=== PATIENT | male | born 1995 | race Two or more races ===

== ENCOUNTER 2024-09-15 09:04 | Emergency (ER) | payer MEDICAID, OTHER ==
[~2024-09-15] VITALS: Ht 175.3 cm; Wt 91.0 kg
[2024-09-15 09:38] VITALS: BP 111/82; PULSE 64; RESP 16; TEMP 97.8; O2SAT 98
[2024-09-15] MEDS ORDERED: ERY05OO OP (10:24)
[2024-09-15] MEDS ORDERED: POLY1DRO14 OP (10:24)
--- NOTE | 2024-09-15 10:24 | ED.PDOC ---
Eye-HPI HPI Comments A 29 year old male with no past medical history presents to the emergency department with a chief complaint of RT eye pain onset 2 days. Patient states he has been experiencing RT eye discomfort, irritation, discharge, crusting for the past 2 days, states he noticed symptoms worsen this morning. He has tried washing his eye with no improvement of symptoms, noticed blurry vision from RT eye. No other symptoms or modifying factors present at this time. Denies hearing changes, nausea, vomiting Denies fever, chills Denies headache, dizziness Denies ear pain, sore throat, cough, congestion Chief Complaint: Eye Problem Time Seen by MD: 09:55 Primary Care Provider: NONE Reviewed Notes: Medications, Allergies Allergies: Coded Allergies: NO KNOWN ALLERGIES (Unverified , 09/15/24) Home Meds Active Scripts Polyethylene Glycol-Propylene (Lubricating Eye Drops 0.4-0.3 %) 1 Terrence Terrence, 1 TERRENCE OP UD for 30 Days, #1 TERRENCE 0 Refills Prov:NIC PETERSON [employer] 09/15/24 Erythromycin (Erythromycin) 5 Mg/Gm Oin, 1 APPLIC OP TID for 7 Days, #3.5 GRAMS 0 Refills Prov:NIC PETERSON [employer] 09/15/24 Information Source: Patient Mode of Arrival: Ambulatory Timing: Days Duration: Since onset Prehospital treatment: None Quality: Red, Discharge Eye Location: Right Lids: Red Slit lamp exam: Normal Anterior chamber: Normal Mouth: Normal ENT Ear Exam: Normal Nose: Normal Sinuses: Normal Oropharynx: Normal Onset: Spontaneous Throat Exposed to: None Associated signs and symptoms: Discharge Past Medical History PAST MEDICAL HISTORY: Denies Surgical History: Denies all surgeries Family History Family History: Reviewed,noncontributory to illness, No family hx of Cancer, No family hx of DM, No family hx of Heart andrews, No family hx of HTN, No family hx ofKidney andrews, No family hx of Liver andrews, No family hx of Lung andrews, No family hx of Stroke Social History Smoker: Non-Smoker Alcohol: Denies ETOH Use Drugs: Denies Drug Use Lives In: Home All Other Systems: Reviewed and Negative (as per HPI) Physical Exam General Appearance: No Apparent Distress, Normal HEENT: Normal ENT Inspection, Pharynx Normal, TMs Normal, Other (R EYE: Mild conjunctival injection. No FB. EOM intact. PERRLA. ) Neck: Full Range of Motion, Non-Tender, Normal, Normal Inspection Respiratory: Chest Non-Tender, Lungs Clear, No Accessory Muscle Use, No Respiratory Distress, Normal Breath Sounds Cardiovascular: No Edema, No JVD, No Murmur, No Gallop, Normal Peripheral Pulses, Regular Rate/Rhythm Breast Exam: Deferred Gastrointestinal: No Organomegaly, Non Tender, No Pulsatile Mass, Normal Bowel Sounds, Soft Genitalia: Deferred Pelvic: Deferred Rectal: Deferred Extremities: No calf tenderness, Normal capillary refill, Normal inspection, Normal range of motion, Non-tender, No pedal edema Musculoskeletal : Apperance: Normal Neurologic: Alert, motorcycle technician II-XII nml as Tested, No Motor Deficits, Normal Affect, Normal Mood, No Sensory Deficits Cerebellar Function: Normal Reflexes: Normal Skin: Dry, Normal Color, Warm Lymphatic: No Adenopathy Was a procedure done? Was a procedure done?: No EENT DIFF Eye: Bacterial, Viral, Foreign Body-Lid, Iritis/Uveitis, Other X-Ray, Labs, Meds, VS Vital Signs Date Time Temp Pulse Resp B/P (MAP) Pulse Ox O2 Delivery O2 Flow Rate FiO2 09/15/24 09:38 64 16 98 Room Air 09/15/24 09:38 97.8 98 17 111/82 (92) 98 97.8 09/15/24 09:16 97.9 60 16 102/81 (88) 99 97.9 X-Ray, Labs, Meds, VS Comment A 29 year old male with no past medical history presents to the emergency department with a chief complaint of RT eye pain onset 2 days. Patient arrives alert and oriented, ABC's intact, afebrile, vital signs stable, saturating well in room air Presentation consistent with bacterial conjunctivitis. Patient is otherwise afebrile and well-appearing without clinical evidence of pre-septal cellulitis or orbital cellulitis. No recent history concerning for corneal abrasion or retained foreign body. No corneal opacity of keratitis, no ciliary flush on exam Prescription for topical antibiotics provided. Advised that patient still considered contagious for up to 24 hours after starting antibiotics Discussed: -Frequent hand washing -Over the counter analgesics -Hydration -Close follow up with a primary care provider or higher level of care if no improvement/worsening symptoms Additional MDM Review of External, Non-ED records: External records reviewed. Discussion with independent historian (EMS, family) history obtained from the patient/parents (if applicable) at bedside Chronic conditions affecting care: None Social determinants of health affecting care: None Consideration of admission (observation or admission): I considered escalation of care to admission for this patient, however given the reassuring workup, the patient is safe for outpatient management. Time of 1ST Reevaluation: 10:25 Reevaluation 1ST: Improved Patient Education/Counseling: Diagnosis, Treatment, Prognosis Family Education/Counseling: No Family Present Departure 1 Departure Time of Disposition: 10:22 Impression: Primary Impression: Conjunctivitis Qualified Codes: H10.31 - Unspecified acute conjunctivitis, right eye Additional Impression: Dry eye Disposition: HOME / SELF CARE / HOMELESS Condition: Fair e-Prescriptions Polyethylene Glycol-Propylene (Lubricating Eye Drops 0.4-0.3 %) 1 Terrence Terrence 1 TERRENCE OP UD for 30 Days, #1 TERRENCE 0 Refills Prov: NIC PETERSON [employer] 09/15/24 Erythromycin (Erythromycin) 5 Mg/Gm Oin 1 APPLIC OP TID for 7 Days, #3.5 GRAMS 0 Refills Prov: NIC PETERSON [employer] 09/15/24 Critical Care Note Critical Care Time?: No Stability Stability form required: No Heart Score Heart Score: Heart Score Response (Comments) Value History N/A 0 EKG N/A 0 Age N/A 0 Risk Factors N/A 0 Troponin N/A 0 Total 0 I personally scribed for NIC PETERSON NP ([email or web address]) on 09/15/24 at 10:56. Electronically submitted by Nichole Norris ([email or web address]). NIC PETERSON NP Sep 15, 2024 10:24
== END 2024-09-15 10:37 | disposition home or self-care (01) ==
LOC: ER 09:04
DX: H10.31 Unspecified acute conjunctivitis, right eye (principal); H04.121 Dry eye syndrome of right lacrimal gland